=== PATIENT | female | born 1985 | race Caucasian/White ===

== ENCOUNTER 2018-09-30 06:23 | Day surgery (SDC) | payer BC ==
[~2018-09-30 06:23] MED LIST: Clindamycin Phosphate in D5W 600 MG in Premix Bag 50 BAG IV ONE; Lactated Ringers 1,000 ML IV SCH
[2018-09-30] MEDS ORDERED: fentaNYL 250 MCG/5 ML SDV ONE (07:12)
[2018-09-30] MEDS ORDERED: Propofol 200 MG/20 ML SDV ONE (07:12)
[2018-09-30] MEDS ORDERED: Midazolam 1 MG/ML 2 ML SDV ONE (07:12)
[2018-09-30] MEDS ORDERED: Bupivacaine 25%/EPINEPHrine/PF 30 ML ONE (07:23)
[2018-09-30] MEDS ORDERED: Octyl 2-Cyanoacrylate 1 Tube ONE (07:27)
--- NOTE | 2018-09-30 07:35 | PCM.PREANE ---
Preanesthetic Assessment - Anesthesia/Transfusion/Family Hx Anesthesia History: Prior Anesthesia Without Reaction Family History of Anesthesia Reaction: No Transfusion History: No Prior Transfusion(s) - Review of Systems General: No Symptoms Pulmonary: No Symptoms Cardiovascular: No Symptoms Gastrointestinal: No Symptoms Neurological: No Symptoms Other: Reports: None - Physical Assessment NPO Status Date: 09/29/18 O2 Sat by Pulse Oximetry: 98 Respiratory Rate: 16 Vital Signs: Last Vital Signs Temp 97.7 F 09/30/18 07:00 Pulse 69 09/30/18 07:00 Resp 16 09/30/18 07:00 BP 109/69 09/30/18 07:00 Pulse Ox 98 09/30/18 07:00 Height: 5 ft 3 in Weight: 68.039 kg ASA Class: 2 (smoker) Mental Status: Alert & Oriented x3 Airway Class: Mallampati = 2 Dentition: Reports: Normal Dentition ROM/Head Extension: Full Lungs: Clear to Auscultation, Normal Respiratory Effort Cardiovascular: Regular Rate, Regular Rhythm - Lab Values: Laboratory Last Values Urine HCG, Qual NEGATIVE (NEGATIVE) 09/30/18 07:05 - Allergies Allergies/Adverse Reactions: Allergies Allergy/AdvReac Type Severity Reaction Status Date / Time doxycycline Allergy Hives Verified 09/27/18 10:18 erythromycin base Allergy Hives Verified 09/27/18 10:18 Penicillins Allergy Hives Verified 09/27/18 10:18 sulfamethoxazole Allergy Hives Verified 09/27/18 10:18 [From Bactrim] trimethoprim [From Bactrim] Allergy Hives Verified 09/27/18 10:18 - Blood Blood Available: No - Anesthesia Plan Pre-Op Medication Ordered: None - Acknowledgements Anesthesia Type Planned: General Anesthesia Pt an Appropriate Candidate for the Planned Anesthesia: Yes Alternatives and Risks of Anesthesia Discussed w Pt/Guardian: Yes Pt/Guardian Understands and Agrees with Anesthesia Plan: Yes PreAnesthesia Questionnaire HEENT History: Reports: Other (See Below) Other HEENT History: wears glasses, has top and bottom dentures Cardiovascular History: Reports: None Respiratory History: Reports: None Gastrointestinal History: Reports: GERD, Irritable Bowel Syndrome Genitourinary History: Reports: None Musculoskeletal History: Reports: Fracture Other Musculoskeletal History: hx fx collarbone Neurological History: Reports: None Psychiatric History: Reports: None Endocrine/Metabolic History: Reports: None Hematologic History: Reports: None Immunologic History: Reports: None Oncologic (Cancer) History: Reports: None Dermatologic History: Reports: None - Past Surgical History Head Surgeries/Procedures: Reports: None HEENT Surgical History: Reports: None Cardiovascular Surgical History: Reports: None Respiratory Surgical History: Reports: None GI Surgical History: Reports: Cholecystectomy Female Surgical History: Reports: Tubal Ligation Endocrine Surgical History: Reports: None Neurological Surgical History: Reports: None Musculoskeletal Surgical History: Reports: None Oncologic Surgical History: Reports: None Dermatological Surgical History: Reports: Other (See Below) - SUBSTANCE USE Smoking Status *Q: Current Every Day Smoker Tobacco Use Within Last Twelve Months: Cigarettes Recreational Drug Use History: No - HOME MEDS Home Medications: Home Meds . [No Known Home Meds] 09/27/18 [History] - CURRENT (IN HOUSE) MEDS Current Meds: Current Medications Lactated Ringer's (Ringers, Lactated) 1,000 mls @ 125 mls/hr IV ASDIRECTED VASU Discontinued Medications Fentanyl (Sublimaze) Confirm Administered Dose 250 mcg .ROUTE .STK-MED ONE Stop: 09/30/18 07:13 Clindamycin Phosphate 600 mg/ (Premix) 50 mls @ 100 mls/hr IV ONETIME ONE Stop: 09/30/18 05:29 Bupivacaine HCl/Epinephrine Bitart (Sensorc Mpf 0.25%-Epi [id number]) Confirm Administered Dose 30 mls @ as directed .ROUTE .STK-MED ONE Stop: 09/30/18 07:24 Midazolam HCl (Versed 1 Mg/Ml) Confirm Administered Dose 2 mg .ROUTE .STK-MED ONE Stop: 09/30/18 07:13 Octyl Cyanoacrylate (Dermabond Advance) Confirm Administered Dose 1 applic .ROUTE .STK-MED ONE Stop: 09/30/18 07:28 Propofol (Diprivan 20 Ml) Confirm Administered Dose 200 mg .ROUTE .STK-MED ONE Stop: 09/30/18 07:13
[2018-09-30] MEDS ORDERED: Clindamycin Phosphate in D5W 50 ML ONE (07:43)
[2018-09-30] MEDS ORDERED: Ondansetron 4 MG/2 ML SDV ONE (08:02)
[2018-09-30] MEDS ORDERED: Dexamethasone 4 MG/ML 5 ML MDV ONE (08:02)
[2018-09-30] MEDS ORDERED: Meperidine PF 25 MG/ML Syringe IVPUSH ONE (08:18)
[2018-09-30] MEDS ORDERED: Ondansetron 4 MG/2 ML SDV IVPUSH ONE (08:18)
[2018-09-30] MEDS ORDERED: HYDROmorphone 2 MG/ML SDV IVPUSH ONE (08:18)
[2018-09-30] MEDS ORDERED: fentaNYL 100 MCG/2 ML SDV IVPUSH PRN (08:18)
[2018-09-30] MEDS ORDERED: Promethazine 25 MG/ML SDV IM ONE (08:18)
[2018-09-30] MEDS ORDERED: Ketorolac 30 MG/ML SDV ONE (08:28)
[2018-09-30] MEDS ORDERED: Acetaminophen/oxyCODONE 325-5 MG Tab PO PRN (09:20)
--- NOTE | 2018-09-30 09:30 | PCM.OPNOTE ---
- General Post-Op/Procedure Note Date of Surgery/Procedure: 09/30/18 Operative Procedure(s): incarcerated incision hernia repair Findings: 5 mm fascia defect w a hernia content of 20 mm; repair primarily, no mesh used; [id number] Pre Op Diagnosis: incarcerated incision hernia Post-Op Diagnosis: Same Anesthesia Technique: General LMA Primary Surgeon: Cezar Jones Pathology: sent Complications: None Condition: Good Free Text/Narrative:: Intake & Output 09/29/18 09/30/18 09/30/18 22:59 06:59 14:59 Intake Total 950 Balance 950
[2018-09-30 10:57] VITALS: BP 110/74
--- NOTE | 2018-09-30 11:12 | PCM.POSTAN ---
POST ANESTHESIA ASSESSMENT - MENTAL STATUS Mental Status: Alert, Oriented - RESPIRATORY Respiratory Status: Respiratory Rate WNL, Airway Patent, O2 Saturation Stable - CARDIOVASCULAR CV Status: Pulse Rate WNL, Blood Pressure Stable - GASTROINTESTINAL GI Status: No Symptoms - POST OP HYDRATION Hydration Status: Adequate & Stable
--- NOTE | 2018-09-30 11:13 | PCM48HPAN ---
Post Anesthesia Note - EVALUATION WITHIN 48HRS OF ANESTHETIC Vital Signs in Normal Range: Yes Patient Participated in Evaluation: Yes Respiratory Function Stable: Yes Airway Patent: Yes Cardiovascular Function Stable: Yes Hydration Status Stable: Yes Pain Control Satisfactory: Yes Nausea and Vomiting Control Satisfactory: Yes Mental Status Recovered: Yes Resp Rate: 16
--- NOTE | 2018-09-30 17:22 | OR ---
SURGEON: Cezar Jones MD DATE OF PROCEDURE: 09/30/2018 PREOPERATIVE DIAGNOSIS: Incarcerated incisional hernia. POSTOPERATIVE DIAGNOSIS: Incarcerated incisional hernia. PROCEDURE PERFORMED: Repair of primary, no mesh used. COMPLICATIONS: None. FINDINGS: 5 mm fascial defect with hernia neck and the hernia content of 20 mm cannot be reduced, resected, and repair of primary, no mesh used. PROCEDURE DETAILS: The patient was taken to the operating room and placed in a supine position. Upon induction of general endotracheal anesthesia, the patient's abdomen was prepped and draped in sterile fashion. Time-out was being called, patient identified, procedure identified, clindamycin was given, procedure was then started. Ioban was applied prophylactically and after assessment of appropriate landmarks, a supraumbilical incision was made which exposed the hernia with content and then dissected around the umbilicus. The hernia was opened up and noted to have hernia content of some omental fat and this was amputated and the rest was back to peritoneal cavity and hernia defect is about 5 mm and the hernia content of 2 cm was repaired primarily using zero Ethibond followed with 3-0 Vicryl to anchor the umbilicus to the skin and approximated the skin using 4 -0 Monocryl, every layer closing followed with irrigation and Dermabond was applied after surgery, and the patient was then awakened, extubated, and transferred to recovery room in hemodynamically stable condition. The patient tolerated procedure well. There were no intraoperative complications. Dr. Jones was present through whole procedure. Prior to fascia closing, instrument counts and sponge counts were correct. ERIN / CHACE /[id number] COURTNEY
== END 2018-09-30 10:45 | disposition home or self-care (01) ==
LOC: MW.SDS 06:23
PROVIDERS: ATTEND Surgery
DX: K43.0 Incisional hernia with obstruction, without gangrene (principal); Z98.890 Other specified postprocedural states; Z90.49 Acquired absence of other specified parts of digestive tract; Z88.1 Allergy status to other antibiotic agents; Z88.0 Allergy status to penicillin; F17.200 Nicotine dependence, unspecified, uncomplicated
CPT/HCPCS: 49561; 81025; 88302; A9270; J1100; J1885; J2250; J2405; J2704; J3010; J3490; J7120; 00790